=== PATIENT | female | born 2000 | race Two or more races ===

== ENCOUNTER → 2020-09-29 | Emergency (ER) | payer SELFPAY ==
[~2020-09-29] VITALS: Ht 157.5 cm; Wt 61.2 kg
[2020-09-29 19:28] VITALS: BP 119/61
== END | disposition left against medical advice (07) ==
LOC: ER 19:22
DX: R68.84 Jaw pain (principal); Z53.21 Procedure and treatment not carried out due to patient leaving prior to being seen by health care provider